=== PATIENT | male | born 1950 | race Two or more races ===

== ENCOUNTER 2020-03-08 11:38 | Outpatient (CLI) | payer OTHER | END 2020-03-08 12:09 | disposition home or self-care (01) | LOC: SONOGRAMA 11:38 | PROVIDERS: ATTEND Pathology Anatomic Pathology & Clinical Pathology | DX: D34 Benign neoplasm of thyroid gland (principal); E04.1 Nontoxic single thyroid nodule; E04.8 Other specified nontoxic goiter ==

== ENCOUNTER 2023-01-02 06:15 | Day surgery (SDC) | payer OTHER ==
[~2023-01-02] VITALS: Ht 175.3 cm; Wt 79.4 kg
[~2023-01-02 06:15] MED LIST: CRESTOR20 MG PO; DEXAMETHAS0.5 MG/5 M PO; DIOVAN320 MG PO; FARYDAK10 MG PO; GEMFIBROZIL600 MG PO; MONTELUKAST SOD10 MG PO; PANTOPRAZOLE SO40 MG PO; PEPCID AC20 MG PO; TAMOXIFEN CITRA20 MG PO; ZOVIRAX400 MG PO
== END 2023-01-02 17:00 | disposition home or self-care (01) ==
LOC: CIR.AMB 06:15
PROVIDERS: ATTEND Surgery
DX: D05.11 Intraductal carcinoma in situ of right breast (principal); N62 Hypertrophy of breast; Z20.822 Contact with and (suspected) exposure to COVID-19; I10 Essential (primary) hypertension; E04.1 Nontoxic single thyroid nodule; E11.9 Type 2 diabetes mellitus without complications; E78.2 Mixed hyperlipidemia
CPT/HCPCS: 19303; A9541